=== PATIENT | male | born 2005 | race Caucasian/White ===

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

== ENCOUNTER → 2023-09-20 | Outpatient (CLI) | payer OTHER, SELFPAY ==
--- NOTE | 2023-09-20 14:55 | CT_ITS ---
STUDY: CT MAXILLOFACIAL SINUSES REASON FOR EXAM: Male, 17 years old. SINUSITIS RADIATION DOSAGE (If Supplied By Facility): CTDIvol = ( 33.06 ) mGy, DLP = ( 817.32 ) mGycm TECHNIQUE: The patient was scanned in a multi detector CT scanner. High resolution axial imaging was performed without the administration of intravenous contrast material. Sagittal and coronal images were reconstructed. Individualized dose optimization techniques were used for this CT. COMPARISON: None. FINDINGS: FRONTAL SINUSES: Normal aeration, without mucosal inflammatory disease. ETHMOIDAL SINUSES: Minimal mucosal thickening of the right ethmoid sinus. MAXILLARY SINUSES: Normal aeration, without mucosal inflammatory disease. SPHENOIDAL SINUSES: Minimal mucosal thickening along the superior medial aspect of the left sphenoid sinus. There is patency of the bilateral maxillary infundibuli with normal uncinate processes, ethmoid bullae, and hiatus semilunaris. Normal bilateral middle turbinates. Normal bilateral inferior turbinates. There is a right sided nasal septal deviation, but without a nasal septal spur. There is patency of the bilateral nasal airways. The visualized osseous structures are normal. The visualized bilateral orbital contents are normal. CT/Sinus/Facial Bone IMPRESSION: Minimal mucosal thickening of the ethmoid sinus and the left sphenoid sinus. Nasal septal deviation towards the right side of the midline. Electronically Signed: Anthony Rincon MD at 15:15 EST ,
== END | disposition home or self-care (01) ==
PROVIDERS: PCP Family Medicine; Referring Provider Otolaryngology; Visit Provider Otolaryngology
DX: J32.8 Other chronic sinusitis (principal)
CPT/HCPCS: 70486

== ENCOUNTER → 2024-01-11 | Outpatient (CLI) | payer OTHER, SELFPAY ==
--- NOTE | 2024-01-11 | ETH_PTH ---
PATHOLOGY RESULTS PATIENT: YELENA MOFFETT LOC: [facility] U#:[id number] AGE/SX: 18/M ROOM: RE01/11/[address]: Dr. Jayson Damon MD : 2005 BED: DIS: 01/11/2024 SPEC #: [id number] RECD: 01/12/24 08:58 STATUS: DMITRY SEJAL #: [id number] YOUNG: 01/11/24 00:[address]: Jayson Damon DEPT: SURGICAL PATHOLOGY RECD BY: Corine Roldan ENTERED: 01/12/24 08:58 SP TYPE: ETH TISS OTHR DR: No Primary Care Phys Tissues: Ethmoid sinus, NOS Ethmoid sinus, NOS Procedures: Decalcification bone/plaque Surgery Specimen Level IV HEADER OPERATION: Open septal rhinoplasty PRE-OP DIAGNOSIS: Allergic rhinitis, hypertrophy of nasal turbinates, deviated nasal septum TISSUE SUBMITTED: A - Right sinus contents, B - Left sinus contents MICROSCOPIC DIAGNOSIS A. Right sinus contents: Fragments of respiratory mucosal tissue and turbinate with mild chronic inflammation and bone. B. Left sinus contents: Fragments of respiratory mucosa with chronic inflammation and bone. [place]:xavier 01/16/2024 MICROSCOPIC DESCRIPTION Slides are reviewed. GROSS DESCRIPTION A - Received in fixative is one container labeled with the patient's name and designated right sinus contents. The specimen consists of multiple irregular fragments of grijalva soft tissue mixed with fragments of bone that in aggregate measure 2.0 x 0.5 x 0.2 cm. A piece of soft tissue with underlying bone is also noted consistent with turbinate and measures 2.0 x 0.5 x 0.3 cm. The specimen is totally submitted in one cassette after decalcification. B - Received in fixative is one container labeled with the patient's name and designated left sinus contents. The specimen consists of multiple irregular fragments of grijalva soft tissue mixed with fragments of bone that in aggregate measure 2.5 x 1.0 x 0.2 cm. The specimen is totally submitted in one cassette after decalcification. / [place]:xavier 01/12/2024 TC:3 CPT: 54406 x2, 14389 x2
== END | disposition home or self-care (01) ==
LOC: LABSPEC 15:45
PROVIDERS: Referring Provider Otolaryngology; Visit Provider Otolaryngology
DX: J30.1 Allergic rhinitis due to pollen (principal); J34.3 Hypertrophy of nasal turbinates; J34.2 Deviated nasal septum; R09.81 Nasal congestion
CPT/HCPCS: 88305; 88311